=== PATIENT | male | born 1970 | race Caucasian/White ===

== ENCOUNTER 2024-05-15 23:08 | Inpatient (IN) | payer BC ==
[2024-05-15 23:30] LABS: Basophils % (A) 0 %; Eosinophils # (A) 0.3 k/uL (0-0.7); Eosinophils % (A) 3 %; HCT 50.1 % (39.0-53.0); HGB 17.1 gm/dL (13.0-17.5); Lymphocytes # (A) 3.4 k/uL (1.0-4.8); Lymphocytes % (A) 39 %; MCH 32.3 pg (25.0-35.0); MCHC 34.1 g/dL (31.0-37.0); MCV 94.8 fL (80.0-100.0); Mean Platelet Volume 7.2; Monocytes # (A) 0.4 k/uL (0-1.0); Monocytes % (A) 5 %; Neutrophils # (A) 4.6 k/uL (1.3-7.7); Neutrophils % (A) 52 %; Platelet Count 191 k/uL (150-450); RBC 5.29 m/uL (4.30-5.90); RDW 14.1 % (11.5-15.5); WBC 8.7 k/uL (3.8-10.6)
--- NOTE | 2024-05-15 23:38 | XR ---
EXAMINATION TYPE: XR chest 2V DATE OF EXAM: 05/15/2024 11:31 PM COMPARISON: None. CLINICAL INDICATION: Male, 53 years old with history of Chest Pain, TECHNIQUE: Frontal and lateral views of the chest are obtained. FINDINGS: There is no focal air space opacity, pleural effusion, or pneumothorax seen. The cardiac silhouette size is within normal limits. The osseous structures are intact. IMPRESSION: No acute cardiopulmonary process. [facility], , 05/15/2024 11:35 PM
[2024-05-15 23:41] LABS: ALT 55 U/L (4-49); AST 98 U/L (17-59); African American GFR (CKD) >90 (>60 ml/min/1.73 sqM); Albumin 4.6 g/dL (3.5-5.0); Alkaline Phosphatase 56 U/L (38-126); Anion Gap 10 mmol/L; Blood Urea Nitrogen 22 mg/dL (9-20); Calcium 9.8 mg/dL (8.4-10.2); Carbon Dioxide 27 mmol/L (22-30); Chloride 101 mmol/L (98-107); Glucose 111 mg/dL (74-99); Non-African American GFR(CKD) >90 (>60 ml/min/1.73 sqM); Sodium 138 mmol/L (137-145); Total Bilirubin 0.7 mg/dL (0.2-1.3); Total Protein 7.3 g/dL (6.3-8.2)
[2024-05-15 23:42] LABS: Partial Thromboplastin Time 24.5 sec (22.0-30.0); Prothrombin Time 10.6 sec (10.0-12.5)
[2024-05-16] MEDS ORDERED: NITROGLYCERIN SL TABS 0.4 MG TAB SUBLINGUAL PRN ×2 (00:12→09:36)
[2024-05-16] MEDS: MORPHINE SULFATE 4 MG/ML SYRINGE IV STA (00:17)
[2024-05-16] MEDS: ASPIRIN 81 MG PO STA (00:17)
[2024-05-16] MEDS: NITROGLYCERIN OINT 1 INCH/GM PACKET TOPICAL STA (00:19)
[2024-05-16] MEDS: HEPARIN SODIUM 1,000 UN/ML (10ML VL) IV ONE (00:28)
[2024-05-16] MEDS: HEPARIN SOD,PORK IN 0.45% NACL 25,000 UNIT in 0.45% NACL 1 250ML.BAG IV SCH (00:30)
[2024-05-16] MEDS: ATORVASTATIN 80 MG TAB PO STA ×2 (00:30→09:41)
[2024-05-16] MEDS: METOPROLOL TARTRATE 12.5 MG TAB PO STA (00:49)
[2024-05-16 03:38] LABS: Basophils % (A) 0 %; Eosinophils # (A) 0.2 k/uL (0-0.7); Eosinophils % (A) 2 %; HCT 46.7 % (39.0-53.0); HGB 15.4 gm/dL (13.0-17.5); Lymphocytes # (A) 2.9 k/uL (1.0-4.8); Lymphocytes % (A) 30 %; MCH 31.8 pg (25.0-35.0); MCHC 32.9 g/dL (31.0-37.0); MCV 96.5 fL (80.0-100.0); Monocytes # (A) 0.5 k/uL (0-1.0); Monocytes % (A) 5 %; Neutrophils # (A) 5.8 k/uL (1.3-7.7); Neutrophils % (A) 62 %; Platelet Count 185 k/uL (150-450); RBC 4.84 m/uL (4.30-5.90); RDW 14.2 % (11.5-15.5); WBC 9.4 k/uL (3.8-10.6)
[2024-05-16 03:43] LABS: Prothrombin Time 11.1 sec (10.0-12.5)
[2024-05-16] MEDS ORDERED: HEPARIN SODIUM,PORCINE (1 ML) 2,500 UNIT in SODIUM CHLORIDE 0.9% 250 ML IRRIGATION PRN (07:00)
[2024-05-16] MEDS ORDERED: HEPARIN SODIUM,PORCINE 10,000 UNIT in SODIUM CHLORIDE 0.9% 1,000 ML IRRIGATION PRN (07:00)
[2024-05-16] MEDS: HEPARIN SODIUM 1,000 UN/ML (10ML VL) IV PRN (07:31)
--- NOTE | 2024-05-16 07:43 | ED ---
Chest Pain HPI - General Chief Complaint: Chest Pain Stated Complaint: Chest pain Time Seen by Provider: 05/15/24 23:28 Source: patient Mode of arrival: ambulatory Limitations: no limitations - History of Present Illness Initial Comments: Patient is a 53-year-old man who presents to have evaluation for chest pain that he states has been going on for a few days, initially being intermittent but having become more constant since yesterday. The patient states pain is aching. He has not noted worsening or relieving factors. He states that sometimes it feels hard to take of breath. Patient has not had other associated symptoms. He does have extensive smoking history. He comes to have evaluation now because the pain has been more constant. MD Complaint: chest pain -: days(s) Onset: during rest Pain Location: left chest Pain Radiation: jaw/teeth Severity: moderate Quality: aching Consistency: intermittent Worsens With: nothing Treatments Prior to Arrival: none - Related Data Home Medications Medication Instructions Recorded Confirmed Magnesium Oxide [Mag-Ox] 400 mg PO DAILY 05/16/24 05/16/24 Multivitamin/Iron/Folic Acid 1 tab PO DAILY 05/16/24 05/16/24 [Centrum Adults Tablet] Previous Rx's Medication Instructions Recorded Aspirin 81 mg PO DAILY tab 05/17/24 Atorvastatin [Lipitor] 80 mg PO DAILY #90 tab 05/17/24 Losartan [Cozaar] 12.5 mg PO DAILY #45 tab 05/17/24 Metoprolol Tartrate [Lopressor] 12.5 mg PO BID #180 tab 05/17/24 Nitroglycerin Sl Tabs [Nitrostat] 0.4 mg SUBLINGUAL Q5M PRN #25 tab 05/17/24 Prasugrel [Effient] 10 mg PO DAILY #90 tab 05/17/24 Allergies Allergy/AdvReac Type Severity Reaction Status Date / Time Penicillins Allergy Unknown Verified 05/16/24 08:25 Childhood Review of Systems ROS Statement: Those systems with pertinent positive or pertinent negative responses have been documented in the HPI. ROS Other: All systems not noted in ROS Statement are negative. Constitutional: Denies: fever, chills, weakness Respiratory: Reports: dyspnea. Denies: cough, wheezes Cardiovascular: Reports: chest pain. Denies: palpitations, orthopnea, edema, syncope Gastrointestinal: Denies: abdominal pain, nausea, vomiting, diarrhea Genitourinary: Denies: dysuria, hematuria Musculoskeletal: Denies: back pain Skin: Denies: rash Neurological: Denies: headache, weakness, numbness Hematological/Lymphatic: Denies: easy bleeding Past Medical History Past Medical History: No Reported History History of Any Multi-Drug Resistant Organisms: None Reported Past Surgical History: Orthopedic Surgery Past Psychological History: No Psychological Hx Reported Smoking Status: Current every day smoker Past Alcohol Use History: Occasional Past Drug Use History: None Reported - Past Family History Mother Family Medical History: Congestive Heart Failure (CHF) Father Family Medical History: Coronary Artery Disease (CAD), Myocardial Infarction ([place]) General Exam Limitations: no limitations General appearance: alert, in no apparent distress Head exam: Present: atraumatic, normocephalic Eye exam: Present: normal appearance. Absent: scleral icterus, conjunctival in jection Neck exam: Present: normal inspection, full ROM. Absent: meningismus Respiratory exam: Present: normal lung sounds bilaterally. Absent: respiratory distress, wheezes, rales, rhonchi, stridor, accessory muscle use Cardiovascular Exam: Present: regular rate, normal rhythm, normal heart sounds. Absent: systolic murmur, diastolic murmur, rubs, gallop GI/Abdominal exam: Present: soft. Absent: distended, tenderness, guarding, rebound, rigid, mass Extremities exam: Present: normal inspection, normal capillary refill. Absent: pedal edema, calf tenderness Back exam: Present: normal inspection. Absent: CVA tenderness (R), CVA tenderness (L) Neurological exam: Present: alert Skin exam: Present: warm, dry, intact, normal color. Absent: rash Course Vital Signs 05/15/24 05/16/24 05/16/24 23:09 02:05 03:36 Temperature 98.4 F Pulse Rate 71 73 70 Respiratory 18 16 16 Rate Blood Pressure 149/93 125/69 O2 Sat by Pulse 100 95 94 L Oximetry 05/16/24 05/16/24 05/16/24 04:27 05:39 08:30 Temperature Pulse Rate 77 69 60 Respiratory 18 16 18 Rate Blood Pressure 116/72 130/94 130/88 O2 Sat by Pulse 96 96 98 Oximetry 05/16/24 05/16/24 08:57 09:58 Temperature 98.0 F Pulse Rate 67 80 Respiratory 18 18 Rate Blood Pressure 130/80 118/82 O2 Sat by Pulse 98 98 Oximetry Chest Pain MDM - [facility] Patient is a 53-year-old man here with chest pain radiating to the jaw, that has been going on intermittently initially for days and now constant for yesterday and today. Patient's ECG is concerning for acute coronary syndrome. I discussed with cardiology and they reviewed the ECG and appears that he probably has completed IA. Patient's labs do have elevated troponin. The patient was started on medications including aspirin, heparin, statin, nitrates, is admitted. Boot And Shoe Repairman will see the patient and probably have cath early today. Case also discussed with admitting service Was pt. sent in by a medical professional or institution (, PA, FURNITURE INSPECTOR, urgent care, hospital, or intermediate...) When possible be specific @ -[No] Did you speak to anyone other than the patient for history (EMS, parent, family, police, friend...)? What history was obtained from this source @ -[No] Did you review nursing and triage notes (agree or disagree)? Why? @ -[I reviewed and agree with nursing and triage notes] Were old charts reviewed (outside hosp., previous admission, EMS record, old EKG, old radiological studies, urgent care reports/EKG's, intermediate records)? Report findings @ -[No old charts were reviewed] Differential Diagnosis (chest pain, altered mental status, abdominal pain women, abdominal pain men, vaginal bleeding, weakness, fever, dyspnea, syncope, headache, dizziness, GI bleed, back pain, seizure, CVA, palpatations, mental health, musculoskeletal)? @ -[Differential Chest Pain: Stable Angina, Unstable Angina, STEMI, NSTEMI Aortic Dissection, Pneumothorax, Musculoskeletal, Esophageal Spasm GERD, Cholecystitis, Pancreatitis, Zoster, this is not meant to be an all-inclusive list. EKG interpreted by me (3pts min.). @ -[I interpreted as above] X-rays interpreted by me (1pt min.). @ -[I interpreted as above CT interpreted by me (1pt min.). @ -[None done] U/S interpreted by me (1pt. min.). @ -[None done] What testing was considered but not performed or refused? (CT, X-rays, U/S, labs)? Why? @ -[None] What meds were considered but not given or refused? Why? @ -[None] Did you discuss the management of the patient with other professionals (professionals i.e. , PA, FURNITURE INSPECTOR, lab, RT, psych nurse, social service technician, entry level staff accountant, teacher, information officer, case work aide)? Give summary @ -Case discussed with cardiology and with admitting physician and treatment recommendations incorporated Was smoking cessation discussed for >3mins.? @ -[No] Was critical care preformed (if so, how long)? @ -[Yes, 35 minutes Were there social determinants of health that impacted care today? How? (Homelessness, low income, unemployed, alcoholism, drug addiction, transportation, low edu. Level, literacy, decrease access to med. care, shelter, rehab)? @ -[No] Was there de-escalation of care discussed even if they declined (Discuss DNR or withdrawal of care, Hospice)? DNR status @ -[No] What co-morbidities impacted this encounter? (DM, HTN, Smoking, COPD, CAD, Cancer, CVA, ARF, Chemo, Hep., AIDS, mental health diagnosis, sleep apnea, morbid obesity)? @ -[Hypertension Was patient admitted / discharged? Hospital course, mention meds given and route, prescriptions, significant lab abnormalities, going to OR and other pertinent info. @ -[As above Undiagnosed new problem with uncertain prognosis? @ -[No] Drug Therapy requiring intensive monitoring for toxicity (Heparin, Nitro, Insulin, Cardizem)? @ -[Heparin Were any procedures done? @ -[No] Diagnosis/symptom? @ -[d acute IA Acute, or Chronic, or Acute on Chronic? @ -[Acute Uncomplicated (without systemic symptoms) or Complicated (systemic symptoms)? @ -[Uncomplicated Side effects of treatment? @ -[No] Exacerbation, Progression, or Severe Exacerbation? @ -[No] Poses a threat to life or bodily function? How? (Chest pain, [place], IA, pneumonia, PE, COPD, DKA, ARF, appy, cholecystitis, CVA, Diverticulitis, Homicidal, Suicidal, threat to staff... and all critical care pts) @ -[Yes All treatments are based on ideal body weight as in ED triage Disposition Clinical Impression: Acute IA Disposition: ADMITTED IP TO THIS HOSP Condition: Stable Is patient prescribed a controlled substance at d/c from ED?: No
[2024-05-16] MEDS: ATORVASTATIN 80 MG TAB PO SCH (08:59)
[2024-05-16] MEDS: METOPROLOL TARTRATE 12.5 MG TAB PO SCH (08:59)
[2024-05-16] MEDS: MORPHINE SULFATE 4 MG/ML SYRINGE IV PRN (09:01)
[2024-05-16] MEDS ORDERED: ALPRAZolam 0.5 MG TAB PO PRN (09:36)
[2024-05-16] MEDS ORDERED: ALPRAZolam 0.25 MG TAB PO PRN (09:36)
--- NOTE | 2024-05-16 09:40 | P.CRDCN ---
History of Present Illness Consult date: 05/16/24 Reason for Consult (text): Acute coronary syndrome History of present illness: This is a 53-year-old male with past medical history of tobacco use and dependence. Patient does not have a reservations specialist and has not had a cardiac workup in the past. We have been asked to evaluate the patient for acute coronary syndrome. Patient states that he developed some chest pains yesterday and he thought it was just gas but his throat started swelling. He went to bed at 10 PM and then woke up at 1030 with severe jaw pain like somebody had slumped him in the jaw. He states he has no chest pain right now but he still has some ache in the jaw area. He is an active smoker. Blood pressure 130/94, heart rate 69, pulse ox 96% on room air. Patient is seen today in the emergency center waiting for a bed on the cardiac stepdown unit. Patient has been started on heparin drip. Discussed with patient need for cardiac catheterization and he is agreeable to move forward with this today. -EKG: Sinus rhythm with left bundle branch block -Chest x-ray: No acute process -Laboratory studies: CBC within normal limits. Electrolytes normal. BUN 22 creatinine 0.9. Troponins 5.41, 6.4, 9.98. -Home cardiac medications: Review Of Systems: At the time of my exam: CONSTITUTIONAL: Denies fever or chills. HEENT: Denies blurred vision, vision changes, or eye pain. Denies hemoptysis. Reports jaw pain. CARDIOVASCULAR: Denies chest pain. Denies orthopnea. Denies PND. Denies palpitations RESPIRATORY: Denies shortness of breath. GASTROINTESTINAL: Denies abdominal pain. Denies nausea or vomiting. HEMATOLOGIC: Denies bleeding disorders. GENITOURINARY: Denies any blood in urine. SKIN: Denies puritis. Denies rash. Physical examination: Gen: This is a 53-year-old male appears to be in no acute distress VS: reviewed HEENT: Head is atraumatic, normocephalic. Pupils equal, round. Sclerae is anicteric. NECK: Supple. No JVD. LUNGS: Clear to auscultation. No wheezes or rhonchi. No intercostal retractions. HEART: Regular rate and rhythm. No murmur. ABDOMEN: Soft No tenderness. EXTREMITIES: No pedal edema. No calf tenderness. NEUROLOGICAL: Patient is awake, alert and oriented x3. Assessment: NSTEMI LBBB Tobacco use and dependence Plan: Continue heparin drip Continue aspirin and Lipitor Add Lopressor 12.5 mg twice daily Schedule patient for cardiac catheterization today with Dr. Andrade Obtain 2-D echocardiogram and Doppler study to assess cardiac structure and function Obtain lipid panel, A1C, TSH Further recommendations to follow based upon clinical course Smoking cessation. Patient will be provided the [place] quit line information at discharge. Thank you kindly for this consultation. Nurse practitioner note has been reviewed, I agree with documented findings and plan of care. Patient was seen and examined. Past Medical History Past Medical History: No Reported History History of Any Multi-Drug Resistant Organisms: None Reported Past Surgical History: Orthopedic Surgery Past Psychological History: No Psychological Hx Reported Smoking Status: Current every day smoker Past Alcohol Use History: Occasional Past Drug Use History: None Reported Medications and Allergies Home Medications Medication Instructions Recorded Confirmed Type Magnesium Oxide [Mag-Ox] 400 mg PO DAILY 05/16/24 05/16/24 History Multivitamin/Iron/Folic Acid 1 tab PO DAILY 05/16/24 05/16/24 History [Centrum Adults Tablet] Allergies Allergy/AdvReac Type Severity Reaction Status Date / Time Penicillins Allergy Unknown Verified 05/16/24 08:25 Childhood Physical Exam Vitals: Vital Signs Temp Pulse Resp BP Pulse Ox 05/16/24 05:39 69 16 130/94 96 05/16/24 04:27 77 18 116/72 96 05/16/24 03:36 70 16 94 L 05/16/24 02:05 73 16 125/69 95 05/15/24 23:09 98.4 F 71 18 149/93 100 Intake and Output 05/15/24 05/16/24 05/16/24 22:59 06:59 14:59 Intake Total 57.563 Balance 57.563 Intake: Intake, IV Titration 57.563 Amount Heparin Sod,Pork in 0.45% 57.563 NaCl 25,000 unit In 0.45 % NaCl 1 250ml.bag @ 12 UNITS/KG/HR 8.165 mls/hr IV .Q24H [facility] Rx#: [id number] Other: Weight 68.039 kg Results 05/16/24 03:25 05/15/24 23:20 Cardiac Enzymes 05/15/24 05/15/24 05/16/24 Range/Units 23:20 23:20 00:25 AST 98 H (17-59) U/L Troponin I 5.410 H* 6.400 H* (0.000-0.034) ng/mL 05/16/24 Range/Units 03:25 AST (17-59) U/L Troponin I 9.980 H* (0.000-0.034) ng/mL Coagulation 05/15/24 05/16/24 05/16/24 Range/Units 23:20 03:25 05:48 PT 10.6 11.1 (10.0-12.5) sec APTT 24.5 34.6 H (22.0-30.0) sec CBC 05/15/24 05/16/24 Range/Units 23:20 03:25 WBC 8.7 9.4 (3.8-10.6) k/uL RBC 5.29 4.84 (4.30-5.90) m/uL Hgb 17.1 15.4 (13.0-17.5) gm/dL Hct 50.1 46.7 (39.0-53.0) % Plt Count 191 185 (150-450) k/uL Comprehensive Metabolic Panel 05/15/24 Range/Units 23:20 Sodium 138 (137-145) mmol/L Potassium 4.0 (3.5-5.1) mmol/L Chloride 101 (98-107) mmol/L Carbon Dioxide 27 (22-30) mmol/L BUN 22 H (9-20) mg/dL Creatinine 0.90 (0.66-1.25) mg/dL Glucose 111 H (74-99) mg/dL Calcium 9.8 (8.4-10.2) mg/dL AST 98 H (17-59) U/L ALT 55 H (4-49) U/L Alkaline Phosphatase 56 (38-126) U/L Total Protein 7.3 (6.3-8.2) g/dL Albumin 4.6 (3.5-5.0) g/dL Current Medications Generic Name Dose Route Start Last Admin Trade Name Freq PRN Reason Stop Dose Admin Aspirin 325 mg 05/17/24 09:00 Aspirin 325 Mg Tab PO DAILY [facility] Atorvastatin Calcium 80 mg 05/16/24 09:00 Atorvastatin 80 Mg Tab PO DAILY [facility] Heparin Sodium (Porcine) 0 unit 05/15/24 23:38 05/16/24 07:31 Heparin Sodium 1,000 Un/Ml (10ml Vl) IV 1,700 unit PER PROTOCOL PRN Administration Low PTT Protocol Heparin Sodium/Sodium Chloride 250 mls @ 8.165 mls/hr 05/15/24 23:45 05/16/24 07:33 25,000 unit/ Sodium Chloride IV 14 units/kg/hr .Q24H [facility] 9.525 mls/hr Titration Protocol 12 UNITS/KG/HR Morphine Sulfate 4 mg 05/16/24 00:12 Morphine Sulfate 4 Mg/Ml Syringe IV Q5M PRN Chest Pain Nitroglycerin 0.4 mg 05/16/24 00:12 Nitroglycerin Sl Tabs 0.4 Mg Tab SUBLINGUAL Q5M PRN Chest Pain Intake and Output 05/15/24 05/16/24 05/16/24 22:59 06:59 14:59 Intake Total 57.563 Balance 57.563 Intake: Intake, IV Titration 57.563 Amount Heparin Sod,Pork in 0.45% 57.563 NaCl 25,000 unit In 0.45 % NaCl 1 250ml.bag @ 12 UNITS/KG/HR 8.165 mls/hr IV .Q24H [facility] Rx#: [id number] Other: Weight 68.039 kg 05/16/24 03:25 05/15/24 23:20
[2024-05-16] MEDS: ASPIRIN 325 MG TAB PO STA (09:56)
[2024-05-16] MEDS: HEPARIN SODIUM,PORCINE (1 ML) 2,500 UNIT in SODIUM CHLORIDE 0.9% 250 ML IRRIGATION ONE (10:08)
[2024-05-16] MEDS: HEPARIN SODIUM,PORCINE 10,000 UNIT in SODIUM CHLORIDE 0.9% 1,000 ML IRRIGATION ONE (10:08)
[2024-05-16] MEDS: SODIUM CHLORIDE 0.9% 1,000 ML IV ONE (10:08)
[2024-05-16] MEDS: MIDAZOLAM 2 MG/2 ML VIAL IVP ONE (10:27)
[2024-05-16] MEDS: fentaNYL (PF) 50 MCG/ML 2 ML AMP IVP ONE (10:29)
[2024-05-16] MEDS: LIDOCAINE 1% INJ 10MG/ML (20 ML MDV) SQ ONE (10:29)
[2024-05-16] MEDS: VERAPAMIL SYRINGE (5 MG/10 ML) INTRAARTER ONE (10:30)
[2024-05-16] MEDS: PRASUGREL 10 MG TAB PO ONE (10:43)
[2024-05-16] MEDS: IOPAMIDOL-370 100ML BTL INJ ONE ×2 (11:03→11:18)
[2024-05-16] MEDS ORDERED: ATROPINE SULFATE 0.1 MG/ML 10ML SYRINGE IV PRN (12:51)
[2024-05-16] MEDS ORDERED: RX INFO: IV CONTRAST WAS GIVEN 1 EACH MISC MISCELLANE PRN (12:51)
[2024-05-16] MEDS ORDERED: ZOLPIDEM 5 MG TAB PO PRN (12:51)
[2024-05-16] MEDS ORDERED: MAG HYDROX/AL HYDROX/SIMETH 30 ML CUP PO PRN (12:51)
[2024-05-16] MEDS: SODIUM CHLORIDE 0.9% 1,000 ML IV SCH (14:04)
[2024-05-16] MEDS: SODIUM CHLORIDE 0.9% 1,000 ML in EMPTY BAG 1 BAG IV SCH (14:05)
--- NOTE | 2024-05-16 14:48 | P.HPIM ---
History of Present Illness H&P Date: 05/16/24 Chief Complaint: Chest pain Patient is a 53-year-old male with past medical history of tobacco use and dependence who presented to the ER with centralized chest pain which started last night. Patient states that the pain radiated to his jaw and felt as though his was swelling up. He also endorsed some shortness of breath. Patient denies having a PCP or following up with a scholarship counselor for any cardiac workup in the past. Patient denied any fevers, chills, nausea, vomiting, diarrhea, or abdominal pain. Vitals on admission temperature 98.4, heart rate 91 bpm, respiratory rate 18, blood pressure 149/93, O2 saturation 100% on room air EKG independently interpreted as sinus rhythm with an left bundle branch block, ventricular rate of 77 and QTc of 400 ms. Labs on admission show WBCs 8.7, hemoglobin 17.1, platelets 191. PT 10.6, INR 1, PTT 24.5. Sodium 138, potassium 4, chloride 101, bicarb 27, BUN 22, creatinine 0.90, glucose 111. Magnesium 2. AST 98, ALT 55, ALP 56. Troponin 5.41, 6.4, 9.98. TSH 4.1 Review of systems: Pertinent positives and negatives as discussed in HPI, a complete review of systems was performed and all other systems are negative. Allergies: None PCP: None stated Social history: Tobacco: 1 pack a day Alcohol: None Recreational drugs: None Travel: None Sick contacts: None Physical examination: Vital signs reviewed General: nontoxic, no distress, appears at stated age Derm: warm, dry, intact Head: atraumatic, normocephalic, symmetric Eyes: anicteric sclera Mouth: no lip lesion, mucus membranes moist Cardiovascular: S1 S2 reg, no murmur Lungs: CTA bilateral, no rhonchi, no rales, no accessory muscle use Abdominal: soft, non-tender to palpation, nondistended Extremities: No cyanosis, clubbing, or pedal edema. Neuro: Alert, Oriented to person, time and place, Gross neurological examination did not reveal any focal deficits. Cranial nerves II to XII grossly intact. Bilateral upper and lower extremity muscle strength intact and sensation intact. Psych: well appearing, appropriate affect Assessment/Plan: Patient is a 53-year-old male with past medical history of tobacco use and dependence who presented to the ER with centralized chest pain which started last night. Active: NSTEMI Branch block Trend troponin every 3 hours x 2 Check Echo Aspirin 81 mg po daily Atorvastatin 40 mg po qhs Cardiology consult court recording monitor Lipid panel , A1C Nitro prn for chest pain IV heparin per protocol NPO for cardiac cath Chronic: Tobacco use and dependence Encourage smoking cessation Hyperlipidemia Continue 80 mg daily F: 0.9% NS at 50 mL/h E: Replete as needed N: Heart healthy A: As tolerated DVT prophylaxis: Heparin per protocol GI prophylaxis: Continue Protonix 40 mg The patient is admitted with an anticipated more than 2 midnight stay for evaluation of NSTEMI CODE STATUS: Full code Discussed with: Patient Anticipated discharge place: Home Past Medical History Past Medical History: No Reported History History of Any Multi-Drug Resistant Organisms: None Reported Past Surgical History: Orthopedic Surgery Past Psychological History: No Psychological Hx Reported Smoking Status: Current every day smoker Past Alcohol Use History: Occasional Past Drug Use History: None Reported - Past Family History Mother Family Medical History: Congestive Heart Failure (CHF) Father Family Medical History: Coronary Artery Disease (CAD), Myocardial Infarction ([place]) Medications and Allergies Home Medications Medication Instructions Recorded Confirmed Type Magnesium Oxide [Mag-Ox] 400 mg PO DAILY 05/16/24 05/16/24 History Multivitamin/Iron/Folic Acid 1 tab PO DAILY 05/16/24 05/16/24 History [Centrum Adults Tablet] Allergies Allergy/AdvReac Type Severity Reaction Status Date / Time Penicillins Allergy Unknown Verified 05/16/24 08:25 Childhood Physical Exam Vitals: Vital Signs Temp Pulse Resp BP Pulse Ox 05/16/24 05:39 69 16 130/94 96 05/16/24 04:27 77 18 116/72 96 05/16/24 03:36 70 16 94 L 05/16/24 02:05 73 16 125/69 95 05/15/24 23:09 98.4 F 71 18 149/93 100 Intake and Output 05/15/24 05/16/24 05/16/24 22:59 06:59 14:59 Intake Total 57.563 Balance 57.563 Intake: Intake, IV Titration 57.563 Amount Heparin Sod,Pork in 0.45% 57.563 NaCl 25,000 unit In 0.45 % NaCl 1 250ml.bag @ 12 UNITS/KG/HR 8.165 mls/hr IV .Q24H [facility] Rx#: [id number] Other: Weight 68.039 kg Results CBC & Chem 7: 05/16/24 03:25 05/15/24 23:20 Labs: Abnormal Lab Results - Last 24 Hours (Table) 05/15/24 05/15/24 05/16/24 Range/Units 23:20 23:20 00:25 APTT (22.0-30.0) sec BUN 22 H (9-20) mg/dL Glucose 111 H (74-99) mg/dL AST 98 H (17-59) U/L ALT 55 H (4-49) U/L Troponin I 5.410 H* 6.400 H* (0.000-0.034) ng/mL 05/16/24 05/16/24 Range/Units 03:25 05:48 APTT 34.6 H (22.0-30.0) sec BUN (9-20) mg/dL Glucose (74-99) mg/dL AST (17-59) U/L ALT (4-49) U/L Troponin I 9.980 H* (0.000-0.034) ng/mL
[2024-05-16] MEDS: ACETAMINOPHEN TAB 325 MG TAB PO PRN (15:03)
--- NOTE | 2024-05-16 21:35 | P.PRCINT ---
Percutaneous Coronary Int. - Percutaneous Coronary Intervention Percutaneous Coronary Intervention: PROCEDURES PERFORMED: Left heart catheterization, bilateral coronary angiography, ultrasound guided arterial access, Penumbra aspiration thrombectomy LAD, PCI proximal to mid LAD with a 2.5 x 38mm Xience KACY, post dilated with a 2.5mm NC balloon INDICATION: NSTEMI CONSENT:I have discussed the risks, benefits and alternative therapies for the above-mentioned procedure and for both sedation/analgesia as well as necessary blood product administration, if indicated, as they pertain to this patient. The patient has indicated understanding and acceptance of the risks and procedures discussed. PROCEDURE: After the risks, benefits and alternatives of the above mentioned procedure explained in detail with the patient, informed consent was obtained. Patient was taken to the catheterization lab and prepped and draped in usual fashion. Patient was noted to have ST elevation on the precordial leads by the time he reached the freezer laboratory technician. Ultrasound guidance was used to assess for arterial access. 1% lidocaine was used to anesthetize the right radial artery. A 6-Sudanese sheath was placed in the right radial artery using modified Seldinger technique and ultrasound guidance. Initially able to pass a 0.035v wire up the right radial artery however significant spasm at the elbow which could not be passed despite attempting a balloon inflated to help guide the catheter. Therefore right femoral access was obtained and a 6Fr sheath was placed in the right femoral artery. Left coronary angiography was performed with a 6-Sudanese CLS 3.5 catheter and right coronary angiography was performed with a 5-Sudanese FR5 catheter in various views. A 5-Sudanese FR5 catheter was inserted into the left ventricle and pressure measurements were obtained. The decision was made to perform PCI of the LAD. Heparin was given. A 6Fr CLS 3.5 guide catheter was used to engage the left main. A 0.014 whisper wire was advanced into the distal LAD. There was significant thrombus and therefore Penumbra aspiration was performed. Balloon angioplasty was performed with a 2.5 x 12 mm balloon. Next a 2.5 x 38mm Xience KACY was placed from the proximal to mid LAD. There was no significant jailing of the diagonal branch which a 0.014 whisper wire had been placed. The stent was post dilated with a 2.5mm NC balloon. Final angiograms were performed. Pre intervention there was 100% stenosis and JUAN 0 flow and post intervention there was < 10% stenosis with JUAN 3 flow. The right radial sheath was removed and a TR band was placed with hemostasis achieved. A 6Fr sheath Angioseal was placed in the right femoral artery and hemostasis was achieved. The patient tolerated the procedure well. Patient was transported back to the post catheterization holding area in stable condition. Conscious Sedation: Patient was monitored under the direct supervision of myself for conscious sedation using Versed and fentanyl for a total duration of 45 minutes HEMODYNAMICS: Ao: 132/71 LV: 129/8, LVEDP 21 SELECTIVE CORONARY ARTERIOGRAPHY: LEFT MAIN: The left main is a large caliber vessel which trifurcates into the LAD, ramus and circumflex. There is distal left main 20-30% stenosis. LEFT ANTERIOR DESCENDING CORONARY ARTERY: LAD is a large caliber vessel which wraps around to the apex. There is proximal 100% stenosis. RAMUS INTERMEDIUS: The ramus is small to moderate caliber and has mild luminal irregularities LEFT CIRCUMFLEX CORONARY ARTERY: Left circumflex is a moderate caliber vessel with 20-30% stenosis. There are left to right collaterals. RIGHT CORONARY ARTERY: The right coronary artery is a large caliber vessel which gives off a PDA and PLV branch and is the dominant vessel. There is diffuse long 95% stenosis of the proximal and mid RCA with distal RCA 100% stenosis. FINAL IMPRESSION: 1. CAD as described above including 20-30% left main, proximal 100% stenosis, 20-30% circumflex stenosis, 100% STATISTICAL METHODS TEACHER RCA with left to right collaterals 2. Elevated left sided filling pressures 3. S/p PCI proximal to mid LAD with a 2.5 x 38mm Xience KACY, post dilated with a 2.5mm NC balloon PLAN: 1. Aggressive risk factor modification per most recent ACC/AHA guidelines. 2. Continue dual antiplatelets with aspirin and Effient for 12 months.
[2024-05-17 07:20] LABS: Basophils % (A) 0 %; Eosinophils # (A) 0.1 k/uL (0-0.7); Eosinophils % (A) 1 %; HGB 15.7 gm/dL (13.0-17.5); Lymphocytes # (A) 3.4 k/uL (1.0-4.8); Lymphocytes % (A) 34 %; MCH 31.7 pg (25.0-35.0); MCHC 32.7 g/dL (31.0-37.0); MCV 97.1 fL (80.0-100.0); Mean Platelet Volume 7.3; Monocytes # (A) 0.8 k/uL (0-1.0); Monocytes % (A) 8 %; Neutrophils # (A) 5.6 k/uL (1.3-7.7); Neutrophils % (A) 55 %; Platelet Count 206 k/uL (150-450); RBC 4.94 m/uL (4.30-5.90); RDW 13.6 % (11.5-15.5); WBC 10.2 k/uL (3.8-10.6)
[2024-05-17 07:53] LABS: African American GFR (CKD) >90 (>60 ml/min/1.73 sqM); Anion Gap 8 mmol/L; Blood Urea Nitrogen 14 mg/dL (9-20); Calcium 9.1 mg/dL (8.4-10.2); Carbon Dioxide 28 mmol/L (22-30); Chloride 100 mmol/L (98-107); Glucose 95 mg/dL (74-99); Non-African American GFR(CKD) >90 (>60 ml/min/1.73 sqM); Potassium 4.6 mmol/L (3.5-5.1); Sodium 136 mmol/L (137-145)
[2024-05-17] MEDS: PRASUGREL 10 MG TAB PO SCH (08:19)
[2024-05-17] MEDS: ASPIRIN 81 MG PO SCH (08:19)
[2024-05-17] MEDS ORDERED: ASPIRIN 325 MG TAB PO SCH (09:00)
[2024-05-17 10:28] LABS: Chol/HDL Ratio 4.99 Ratio; LDL Cholesterol,Calculated 119.1 mg/dL (0.0-131.0); VLDL Calculation 14.42 mg/dL (5.00-40.00)
[2024-05-17 11:07] LABS: NT-Pro-B-Type Natriuretic Pept 2680 pg/mL
[2024-05-17] MEDS: LOSARTAN 25 MG TAB PO SCH (13:19)
--- NOTE | 2024-05-17 13:40 | P.PN ---
Subjective Progress Note Date: 05/17/24 Hospital Course: Patient is a 53-year-old male with past medical history of tobacco use and dependence who presented to the ER with centralized chest pain which started last night. Patient states that the pain radiated to his jaw and felt as though his was swelling up. He also endorsed some shortness of breath. Patient denies having a PCP or following up with a dairy equipment repairer for any cardiac workup in the past. Patient denied any fevers, chills, nausea, vomiting, diarrhea, or abdominal pain. Vitals on admission temperature 98.4, heart rate 91 bpm, respiratory rate 18, blood pressure 149/93, O2 saturation 100% on room air EKG independently interpreted as sinus rhythm with an left bundle branch block, ventricular rate of 77 and QTc of 400 ms. Labs on admission show WBCs 8.7, hemoglobin 17.1, platelets 191. PT 10.6, INR 1, PTT 24.5. Sodium 138, potassium 4, chloride 101, bicarb 27, BUN 22, c reatinine 0.90, glucose 111. Magnesium 2. AST 98, ALT 55, ALP 56. Troponin 5.41, 6.4, 9.98. TSH 4.1 05/17/24 Patient seen and examined at bedside. No acute events overnight. Pertinent positives and negatives discussed above, a complete review of systems was performed and all the other systems were negative. Vitals Signs Reviewed. General: non toxic, no distress, appears at stated age, normal weight Derm: no unusual rashes/lesions, warm Head: atraumatic, normocephalic, symmetric Eyes: EOMI, anicteric sclera, pupils equal round reactive to light ENT: Nose and ears atraumatic Neck: No cervical lymphadenopathy, trachea midline, supple Mouth: no lip lesion, mucus membranes moist Cardiovascular: S1S2 reg, no murmur, positive dorsalis pedis pulse bilateral, no edema Lungs: Equal air entry bilaterally, no rhonchi, no rales, no accessory muscle use Abdominal: soft, nontender to palpation, no guarding Ext: muscle strength 5 out of 5 in all 4 extremities grossly, no gross muscle atrophy, no contractures, Neuro: CN II-XI grossly intact, no gross focal neuro deficits Psych: Alert, oriented, appropriate affect Data Reviewed Today: Patient Labs: WBCs 10.2, hemoglobin 15.7, platelets 206. Sodium 136, potassium 4.6, chloride 100, bicarb 28, BUN 14, creatinine 0.84, glucose 95, calcium 9.1. A1c 4.9. TSH 4.1. Imaging: No new imaging Assessment and Plan: Patient is a 53-year-old male with past medical history of tobacco use and dependence who presented to the ER with centralized chest pain which radiated to the jaw. NSTEMI Left bundle Branch block Elevated troponins CAD status post PCI proximal to mid LAD Follow-up echocardiogram Continue aspirin 81 mg po daily Continue prasugrel 10 mg daily Continue atorvastatin 40 mg po qhs Cardiology consulted service engine repairer Follow-up lipid panel Nitro prn for chest pain IV heparin per protocol Follow-up lipid and NT proBNP Chronic: Tobacco use and dependence Discussed how imperative smoking cessation is Hyperlipidemia Continue 80 mg daily F: None E: Replete as needed N: Heart healthy A: As tolerated DVT prophylaxis: Heparin per protocol GI prophylaxis: Continue Protonix 40 mg The patient is admitted with an anticipated more than 2 midnight stay for evaluation of NSTEMI CODE STATUS: Full code Discussed with: Patient Anticipated discharge place: Pending clinical course Objective - Vital Signs Vital signs: Vital Signs Temp 99 F 05/17/24 03:44 Pulse 81 05/17/24 03:44 Resp 16 05/17/24 03:44 BP 104/72 05/17/24 03:44 Pulse Ox 95 05/17/24 03:44 FiO2 Intake & Output 05/16/24 05/17/24 05/17/24 18:59 06:59 18:59 Intake Total 649.563 560 Output Total 325 Balance 324.563 560 Weight 68.039 kg 68.1 kg Intake: IV 352 20 0.9 20 Intake, IV Titration 57.563 Amount Heparin Sod,Pork in 0.45% 57.563 NaCl 25,000 unit In 0.45 % NaCl 1 250ml.bag @ 12 UNITS/KG/HR 8.165 mls/hr IV .Q24H STEPH[facility]IE Rx#: [id number] Oral 240 540 Output: Urine 325 Other: # Voids 1 - Labs CBC & Chem 7: 05/17/24 06:53 05/17/24 06:53 Labs: Abnormal Lab Results - Last 24 Hours (Table) 05/17/24 Range/Units 06:53 Sodium 136 L (137-145) mmol/L
--- NOTE | 2024-05-17 13:42 | CA ---
Transthoracic Echo Report Name: Rom Diaz Age: 53 Gender: M : 1970 Exam Date: 05/16/2024 16:15 Exam Location: [place] [facility] Ht (in): 67 Wt (lb): 150 Ordering Physician: Brannon Andrade DO ([email or web address]) Attending/Referring Phys: Gluer Liz Ho RDCS Procedure CPT: Indications: lvef, Ischemic cardiomyopathy Cardiac Hx: Technical Quality: Fair Contrast 1: Definity Total Dose (mL): 3 Contrast 2: Total Dose (mL): MEASUREMENTS (Male / Female) Normal Values 2D ECHO LV Diastolic Diameter PLAX 5.3 cm 4.2 - 5.9 / 3.9 - 5.3 cm LV Systolic Diameter PLAX 4.7 cm IVS Diastolic Thickness 1.1 cm 0.6 - 1.0 / 0.6 - 0.9 cm LVPW Diastolic Thickness 1.3 cm 0.6 - 1.0 / 0.6 - 0.9 cm LV Relative Wall Thickness 0.5 LVOT Diameter 2.0 cm LV Diastolic Volume MOD BP 183.1 cm??? 67 - 155 / 56 - 104 cm??? LV Systolic Volume MOD BP 165.7 cm??? 22 - 58 / 19 - 49 cm??? LV Ejection Fraction MOD BP 9.5 % >= 55 % LV Cardiac Index MOD BP 785.0 cm???/min???m??? LV Diastolic Volume MOD 4C 173.2 cm??? LV Systolic Volume MOD 4C 161.6 cm??? LV Ejection Fraction MOD 4C 6.7 % LV Cardiac Index MOD 4C 519.6 cm???/min???m??? LV Diastolic Length 4C 8.6 cm LV Systolic Length 4C 7.7 cm LV Diastolic Volume MOD 2C 178.7 cm??? LV Systolic Volume MOD 2C 151.6 cm??? LV Ejection Fraction MOD 2C 15.2 % LV Cardiac Index MOD 2C 1223.2 cm???/min???m??? LV Diastolic Length 2C 9.3 cm LV Systolic Length 2C 8.8 cm LA Volume 30.1 cm??? 18 - 58 / 22 - 52 cm??? LA Volume Index 16.7 cm???/m??? 16 - 28 cm???/m??? M-MODE LV Diastolic Diameter MM 7.2 cm 4.2 - 5.9 / 3.9 - 5.3 cm LV Systolic Diameter MM 6.4 cm LV Cardiac Index MM Teich 2938.2 cm???/min???m??? IVS Diastolic Thickness MM 0.9 cm 0.6 - 1.0 / 0.6 - 0.9 cm LVPW Diastolic Thickness MM 1.1 cm 0.6 - 1.0 / 0.6 - 0.9 cm LV Relative Wall Thickness MM 0.3 0.24 - 0.42 / 0.22 - 0.42 LV Mass Index MM 192.3 g/m??? 49 - 115 / 43 - 95 g/m??? DOPPLER AV Peak Velocity 178.7 cm/s AV Peak Gradient 12.8 mmHg AV Mean Velocity 135.8 cm/s AV Mean Gradient 8.3 mmHg AV Velocity Time Integral 33.3 cm LVOT Peak Velocity 127.0 cm/s LVOT Peak Gradient 6.5 mmHg LVOT Velocity Time Integral 21.4 cm LVOT Stroke Volume 66.5 cm??? LVOT Stroke Volume Index 37.1 ml/m??? LVOT Cardiac Index 2992.7 cm???/min???m??? AV Area Cont Eq vti 2.0 cm??? AV Area Cont Eq pk 2.2 cm??? MV Area PHT 4.9 cm??? Mitral E Point Velocity 78.1 cm/s Mitral A Point Velocity 66.3 cm/s Mitral E to A Ratio 1.2 MV Deceleration Time 154.8 ms PV Peak Velocity 106.2 cm/s PV Peak Gradient 4.5 mmHg FINDINGS Left Ventricle Left ventricular ejection fraction is estimated at 15-20 %. Severely increased left ventricular mass. Mildly increased septal wall thickness. Severely decreased fractional shortening. Severely decreased midwall fractional shortening. Severely increased left ventricular diastolic diameter. Moderately increased left ventricular diastolic volume. Severely increased left ventricular systolic volume. Severely decreased left ventricular ejection fraction. No evidence of LV thrombus on contrast imaging. Right Ventricle Normal right ventricular size and function. Unable to estimate the right ventricular systolic pressure. Right Atrium Normal right atrial size. Left Atrium Normal left atrial size. Mitral Valve Structurally normal mitral valve. No evidence for mitral valve prolapse. No mitral stenosis. Trace mitral regurgitation. Aortic Valve Trileaflet aortic valve. Focal thickening of the aortic valve cusps. No aortic valve stenosis or regurgitation. Tricuspid Valve Structurally normal tricuspid valve. No tricuspid stenosis. Trace tricuspid regurgitation. Pulmonic Valve Structurally normal pulmonic valve. No pulmonic stenosis. Trace pulmonic regurgitation. Pericardium No pericardial effusion. Aorta Normal size aortic root and proximal ascending aorta. CONCLUSIONS LVEF 20% Mid to distal anteroseptal anteroapical wall akinesia. Dilated LV cavity Lack of contrast in mid to distal anteroseptal and anteroapical wall likely suggestive of infarct. No obvious valvular dysfunction Normal RV size and systolic function. Previewed by: Dr Oswald Trevizo (Electronically Signed) Final Date: 17 May 2024 13:42
--- NOTE | 2024-05-17 14:22 | P.PN ---
Subjective Progress Note Date: 05/17/24 Reason for Consult (text): Acute coronary syndrome History of present illness: This is a 53-year-old male with past medical history of tobacco use and d ependence. Patient does not have a facilities custodian and has not had a cardiac workup in the past. We have been asked to evaluate the patient for acute coronary syndrome. Patient states that he developed some chest pains yesterday and he thought it was just gas but his throat started swelling. He went to bed at 10 PM and then woke up at 1030 with severe jaw pain like somebody had slumped him in the jaw. He states he has no chest pain right now but he still has some ache in the jaw area. He is an active smoker. Blood pressure 130/94, heart rate 69, pulse ox 96% on room air. Patient is seen today in the emergency center waiting for a bed on the cardiac stepdown unit. Patient has been started on heparin drip. Discussed with patient need for cardiac catheterization and he is agreeable to move forward with this today. -EKG: Sinus rhythm with left bundle branch block -Chest x-ray: No acute process -Laboratory studies: CBC within normal limits. Electrolytes normal. BUN 22 creatinine 0.9. Troponins 5.41, 6.4, 9.98. -Home cardiac medications: 05/17 Patient seen and examined on the cardiac stepdown unit. Yesterday, patient underwent cardiac catheterization with Dr. Andrade which revealed 20-30% left main, proximal 100% stenosis, 20-30% circumflex stenosis, 100% PUBLIC SAFETY TELECOMMUNICATOR RCA with left to right collaterals. Patient underwent PCI proximal to mid LAD with a 2.5 x 38mm Xience KACY, post dilated with a 2.5mm NC balloon. Patient is seen now on the cardiac stepdown unit. Discussed results of the cardiac cath as well as the echocardiogram with the patient and recommended LifeVest which patient states he does not want to do. He has had no episodes of ventricular tachycardia. He denies any chest pain or chest pressure no shortness of breath. Blood pressure 96/71, heart rate 68, pulse ox 97% on room air. Repeat blood work reveals BUN 14 creatinine 0.84. Echocardiogram reveals EF of 20%, mid to distal anterior septal and anterior apical wall akinesia. Dilated LV cavity. No obvious valvular dysfunction.. Physical examination: Gen: This is a 53-year-old male appears to be in no acute distress VS: reviewed HEENT: Head is atraumatic, normocephalic. Pupils equal, round. Sclerae is anicteric. NECK: Supple. No JVD. LUNGS: Clear to auscultation. No wheezes or rhonchi. No intercostal retractions. HEART: Regular rate and rhythm. No murmur. ABDOMEN: Soft No tenderness. EXTREMITIES: No pedal edema. No calf tenderness. NEUROLOGICAL: Patient is awake, alert and oriented x3. Assessment: NSTEMI Ischemic cardiomyopathy with EF of 20% LBBB Tobacco use and dependence Plan: Continue aspirin and Lipitor, Lopressor 12.5 mg twice daily, Effient 10 mg daily Add losartan 12.5 mg daily Recommend LifeVest which patient is declining. Prescriptions for his new cardiac medications have been sent to his pharmacy Plan to monitor patient overnight and discharge home tomorrow At the time of discharge, patient will follow-up with Dr. Andrade in 1 week. Smoking cessation. Patient will be provided the [place] quit line information at discharge. Nurse practitioner note has been reviewed, I agree with documented findings and plan of care. Patient was seen and examined. Objective - Vital Signs Vital signs: Vital Signs Temp 98.7 F 05/17/24 08:00 Pulse 68 05/17/24 11:35 Resp 16 05/17/24 11:35 BP 96/71 05/17/24 11:35 Pulse Ox 97 05/17/24 11:35 FiO2 Intake & Output 05/16/24 05/17/24 05/17/24 18:59 06:59 18:59 Intake Total 649.655 539 6551 Output Total 325 Balance 324.134 266 4470 Weight 68.039 kg 68.1 kg Intake: IV 352 20 0.9 20 Intake, IV Titration 57.563 Amount Heparin Sod,Pork in 0.45% 57.563 NaCl 25,000 unit In 0.45 % NaCl 1 250ml.bag @ 12 UNITS/KG/HR 8.165 mls/hr IV .Q24H [facility] Rx#: [id number] Oral [id number] Output: Urine 325 Other: # Voids 1 1 - Labs CBC & Chem 7: 05/17/24 06:53 05/17/24 06:53 Labs: Abnormal Lab Results - Last 24 Hours (Table) 05/17/24 05/17/24 Range/Units 06:53 06:53 Sodium 136 L (137-145) mmol/L HDL Cholesterol 33.50 L (40.00-60.00) mg/dL
[2024-05-17 16:21] VITALS: BMI 23.5
[2024-05-18 06:48] LABS: Basophils % (A) 0 %; Eosinophils # (A) 0.1 k/uL (0-0.7); Eosinophils % (A) 1 %; HCT 44.3 % (39.0-53.0); HGB 14.8 gm/dL (13.0-17.5); Lymphocytes # (A) 2.7 k/uL (1.0-4.8); Lymphocytes % (A) 36 %; MCH 32.1 pg (25.0-35.0); MCHC 33.5 g/dL (31.0-37.0); MCV 95.7 fL (80.0-100.0); Mean Platelet Volume 7.7; Monocytes # (A) 0.6 k/uL (0-1.0); Monocytes % (A) 8 %; Neutrophils % (A) 53 %; Platelet Count 184 k/uL (150-450); RBC 4.63 m/uL (4.30-5.90); RDW 13.9 % (11.5-15.5); WBC 7.5 k/uL (3.8-10.6)
[2024-05-18 07:28] LABS: African American GFR (CKD) >90 (>60 ml/min/1.73 sqM); Anion Gap 7 mmol/L; Blood Urea Nitrogen 15 mg/dL (9-20); Calcium 8.9 mg/dL (8.4-10.2); Carbon Dioxide 26 mmol/L (22-30); Chloride 102 mmol/L (98-107); Glucose 90 mg/dL (74-99); Magnesium 1.9 mg/dL (1.6-2.3); Non-African American GFR(CKD) >90 (>60 ml/min/1.73 sqM); Potassium 4.4 mmol/L (3.5-5.1); Sodium 135 mmol/L (137-145)
[2024-05-18 10:09] VITALS: RESP 17; TEMP 98.8
--- NOTE | 2024-05-18 11:23 | P.PN ---
Subjective Progress Note Date: 05/18/24 Reason for Consult (text): Acute coronary syndrome History of present illness: This is a 53-year-old male with past medical history of tobacco use and d ependence. 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 We have been asked to evaluate the patient for acute coronary syndrome. Patient states that he developed some chest pains yesterday and he thought it was just gas but his throat started swelling. He went to bed at 10 PM and then woke up at 1030 with severe jaw pain like somebody had slumped him in the jaw. He states he has no chest pain right now but he still has some ache in the jaw area. He is an active smoker. Blood pressure 130/94, heart rate 69, pulse ox 96% on room air. Patient is seen today in the emergency center waiting for a bed on the cardiac stepdown unit. Patient has been started on heparin drip. Discussed with patient need for cardiac catheterization and he is agreeable to move forward with this today. -EKG: Sinus rhythm with left bundle branch block -Chest x-ray: No acute process -Laboratory studies: CBC within normal limits. Electrolytes normal. BUN 22 creatinine 0.9. Troponins 5.41, 6.4, 9.98. -Home cardiac medications: 05/17 Patient seen and examined on the cardiac stepdown unit. Yesterday, patient underwent cardiac catheterization with Dr. Andrade which revealed 20-30% left main, proximal 100% stenosis, 20-30% circumflex stenosis, 100% FOREIGN CLERK RCA with left to right collaterals. Patient underwent PCI proximal to mid LAD with a 2.5 x 38mm Xience KACY, post dilated with a 2.5mm NC balloon. Patient is seen now on the cardiac stepdown unit. Discussed results of the cardiac cath as well as the echocardiogram with the patient and recommended LifeVest which patient states he does not want to do. He has had no episodes of ventricular tachycardia. He denies any chest pain or chest pressure no shortness of breath. Blood pressure 96/71, heart rate 68, pulse ox 97% on room air. Repeat blood work reveals BUN 14 creatinine 0.84. Echocardiogram reveals EF of 20%, mid to distal anterior septal and anterior apical wall akinesia. Dilated LV cavity. No obvious valvular dysfunction.. 05/18 Patient seen and examined. Blood pressure 106/66, heart rate 75, pulse ox 95% on room air. Repeat blood work reveals normal CBC, sodium 135, potassium 4.4, BUN 15 creatinine 0.82. Yesterday, losartan was added due to cardiomyopathy. Also LifeVest was recommended but patient declined. Patient denies chest pain chest pressure, no shortness of breath. He has been ambulating in his room. No lightheadedness or dizziness. No arrhythmias overnight. Physical examination: Gen: This is a 53-year-old male appears to be in no acute distress VS: reviewed HEENT: Head is atraumatic, normocephalic. Pupils equal, round. Sclerae is anicteric. NECK: Supple. No JVD. LUNGS: Clear to auscultation. No wheezes or rhonchi. No intercostal retractions. HEART: Regular rate and rhythm. No murmur. ABDOMEN: Soft No tenderness. EXTREMITIES: No pedal edema. No calf tenderness. NEUROLOGICAL: Patient is awake, alert and oriented x3. Assessment: NSTEMI Ischemic cardiomyopathy with EF of 20% LBBB Tobacco use and dependence Plan: Continue aspirin and Lipitor, Lopressor 12.5 mg twice daily, Effient 10 mg daily, losartan 12.5 mg daily Recommend LifeVest which patient declined Prescriptions for his new cardiac medications have been sent to his pharmacy Patient is cleared for discharge from a cardiology perspective. Patient will follow-up with Dr. Andrade in 1 week. Smoking cessation. Patient will be provided the [place] quit line information at discharge. Nurse practitioner note has been reviewed, I agree with documented findings and plan of care. Patient was seen and examined. Objective - Vital Signs Vital signs: Vital Signs Temp 98.4 F 05/18/24 03:13 Pulse 75 05/18/24 03:13 Resp 18 05/18/24 03:13 BP 106/66 05/18/24 03:13 Pulse Ox 95 05/18/24 03:13 FiO2 Intake & Output 05/17/24 05/18/24 05/18/24 18:59 06:59 18:59 Intake Total 2039 120 240 Output Total 100 Balance 2039 20 240 Weight 68.1 kg 68.3 kg Intake: Oral 2039 120 240 Output: Urine 100 Other: # Voids 2 2 - Labs CBC & Chem 7: 05/18/24 05:59 05/18/24 05:59 Labs: Abnormal Lab Results - Last 24 Hours (Table) 05/17/24 05/17/24 05/18/24 Range/Units 06:53 10:07 05:59 Sodium 135 L (137-145) mmol/L HDL Cholesterol 33.50 L 30.60 L (40.00-60.00) mg/dL
[2024-05-18 12:01] VITALS: BP 124/70; PULSE 60
--- NOTE | 2024-05-18 13:58 | P.DS ---
Providers Date of admission: 05/16/24 00:13 Expected date of discharge: 05/18/24 Attending physician: Eugenio Saunders MD Consults: 05/16/24 00:12 Consult Physician Urgent Consulting Provider: Oswald Trevizo Consult Reason/Comments: Coronary syndrome Do you want consulting provider notified?: Already Contacted 05/16/24 12:51 Consult Physician Routine Consulting Provider: [facility] Consult Reason/Comments: Post Interventional Patient Do you want consulting provider notified?: Already Contacted Primary care physician: Andriy Floyd Hospital Course: Discharge diagnosis: NSTEMI Left bundle Branch block Elevated troponins CAD status post PCI proximal to mid LAD Ischemic cardiomyopathy with EF 20% Tobacco use and dependence Hyperlipidemia Hospital Course: Patient is a 53-year-old male with past medical history of tobacco use and dependence who presented to the ER with centralized chest pain which started last night. Patient states that the pain radiated to his jaw and felt as though his was swelling up. He also endorsed some shortness of breath. Patient denies having a PCP or following up with a director [facility] for any cardiac workup in the past. Patient denied any fevers, chills, nausea, vomiting, diarrhea, or abdominal pain. Vitals on admission temperature 98.4, heart rate 91 bpm, respiratory rate 18, blood pressure 149/93, O2 saturation 100% on room air. EKG independently interpreted as sinus rhythm with an left bundle branch block, ventricular rate of 77 and QTc of 400 ms.. Labs on admission show WBCs 8.7, hemoglobin 17.1, platelets 191. PT 10.6, INR 1, PTT 24.5. Sodium 138, potassium 4, chloride 101, bicarb 27, BUN 22, creatinine 0.90, glucose 111. Magnesium 2. AST 98, ALT 55, ALP 56. Troponin 5.41, 6.4, 9.98. TSH 4.1 05/17/24 Patient seen and examined at bedside. No acute events overnight. 05/18/24 Patient seen at bedside today and is feeling good and excited about discharge. Patient will be discharged today and is given a script for losartan 12.5 mg, atorvastatin 80 mg, nitroglycerin sublingual tablets, aspirin 81 mg, prasugrel 10 mg, metoprolol 12.5 mg. Patient is advised to be compliant with medications. Patient is advised to follow-up with PCP in 1-2 days and director [facility] in 1 week. Vital signs are reviewed and stable General: non toxic, no distress, appears at stated age, normal weight Derm: no unusual rashes/lesions, warm Head: atraumatic, normocephalic, symmetric Eyes: EOMI, anicteric sclera, pupils equal round reactive to light ENT: Nose and ears atraumatic Neck: No cervical lymphadenopathy, trachea midline, supple Mouth: no lip lesion, mucus membranes moist Cardiovascular: S1S2 reg, no murmur, positive dorsalis pedis pulse bilateral, no edema Lungs: Equal air entry bilaterally, no rhonchi, no rales, no accessory muscle use Abdominal: soft, nontender to palpation, no guarding Ext: muscle strength 5 out of 5 in all 4 extremities grossly, no gross muscle atrophy, no contractures, Neuro: CN II-XI grossly intact, no gross focal neuro deficits Psych: Alert, oriented, appropriate affect A total of 30 minutes of time were spent preparing this complex discharge summary. Patient was discharged on 05/18/24 at 1330. Patient Condition at Discharge: Stable Plan - Discharge Summary Discharge Rx Participant: No New Discharge Prescriptions: New Losartan [Cozaar] 12.5 mg PO DAILY #45 tab Atorvastatin [Lipitor] 80 mg PO DAILY #90 tab Nitroglycerin Sl Tabs [Nitrostat] 0.4 mg SUBLINGUAL Q5M PRN #25 tab PRN Reason: Chest Pain Aspirin 81 mg PO DAILY tab Prasugrel [Effient] 10 mg PO DAILY #90 tab Metoprolol Tartrate [Lopressor] 12.5 mg PO BID #180 tab Continue Multivitamin/Iron/Folic Acid [Centrum Adults Tablet] 1 tab PO DAILY Magnesium Oxide [Mag-Ox] 400 mg PO DAILY Discharge Medication List Magnesium Oxide [Mag-Ox] 400 mg PO DAILY 05/16/24 [History] Multivitamin/Iron/Folic Acid [Centrum Adults Tablet] 1 tab PO DAILY 05/16/24 [History] Aspirin 81 mg PO DAILY tab 05/17/24 [Rx] Atorvastatin [Lipitor] 80 mg PO DAILY #90 tab 05/17/24 [Rx] Losartan [Cozaar] 12.5 mg PO DAILY #45 tab 05/17/24 [Rx] Metoprolol Tartrate [Lopressor] 12.5 mg PO BID #180 tab 05/17/24 [Rx] Nitroglycerin Sl Tabs [Nitrostat] 0.4 mg SUBLINGUAL Q5M PRN #25 tab 05/17/24 [Rx] Prasugrel [Effient] 10 mg PO DAILY #90 tab 05/17/24 [Rx] Follow up Appointment(s)/Referral(s): Brannon Andrade DO [STAFF PHYSICIAN] - 1 Week Andriy Floyd [Primary Care Provider] - 1 Week Discharge Disposition: HOME SELF-CARE
== END 2024-05-18 14:27 | disposition home or self-care (01) | DRG 322 ==
LOC: EC 23:08 → 3SCARD 05-16 00:13
PROVIDERS: ADMIT Internal Medicine; ATTEND Internal Medicine
PROC: 4A023N7 Measurement of Cardiac Sampling and Pressure, Left Heart, Percutaneous Approach (ICD-10-PCS; principal; 2024-05-16 16:45)
PROC: B2111ZZ Fluoroscopy of Multiple Coronary Arteries using Low Osmolar Contrast (ICD-10-PCS; principal; 2024-05-16 16:45)
PROC: 027034Z Dilation of Coronary Artery, One Artery with Drug-eluting Intraluminal Device, Percutaneous Approach (ICD-10-PCS; principal; 2024-05-16 16:45)
PROC: 02C03ZZ Extirpation of Matter from Coronary Artery, One Artery, Percutaneous Approach (ICD-10-PCS; principal; 2024-05-16 16:45)
DX: I21.4 Non-ST elevation (NSTEMI) myocardial infarction (principal); E78.5 Hyperlipidemia, unspecified; I44.7 Left bundle-branch block, unspecified; I25.5 Ischemic cardiomyopathy; I25.10 Atherosclerotic heart disease of native coronary artery without angina pectoris; F17.210 Nicotine dependence, cigarettes, uncomplicated; Z79.899 Other long term (current) drug therapy; Z88.0 Allergy status to penicillin
CPT/HCPCS: 36415; 71046; 80048; 80053; 80061; 83036; 83735; 83880; 84443; 84484; 85025; 85610; 85730; 92973; 93005; 93306; 93458; 96365; 96366; 96375; 96376; 99291